=== PATIENT | female | born 1995 | race Caucasian/White ===

== ENCOUNTER → 2022-11-27 09:35 | Outpatient (BNVA) | payer OTHER, SELFPAY | PROVIDERS: PCP Family Medicine; Visit Provider Physician Assistant ==

== ENCOUNTER 2022-12-26 13:04 | Outpatient (REF) | payer OTHER, SELFPAY | END 2022-12-26 13:05 | disposition home or self-care (01) | LOC: HO.LNP 13:04 | PROVIDERS: PCP Family Medicine; Visit Provider Physician Assistant | DX: Z01.818 Encounter for other preprocedural examination (principal); E66.01 Morbid (severe) obesity due to excess calories; Z71.3 Dietary counseling and surveillance | CPT/HCPCS: 83013; 99202; 99211 ==

== ENCOUNTER 2023-01-08 09:42 | Outpatient (REF) | payer OTHER, SELFPAY ==
--- NOTE | ~2023-01-08 | US_ITS ---
EXAMINATION: US COMPLETE ABDOMEN WITH LIVER ELASTOGRAPHY CLINICAL INFORMATION: Morbid obesity. COMPARISON: None available. TECHNIQUE: Real-time imaging of the abdominal viscera. Noninvasive ultrasound liver fibrosis assessment is performed using Ryan ElastPQ point quantification shear wave elastography (2D-SWE) with a C5-2 MHz transducer. Multiple elastography samples are obtained. FINDINGS: PANCREAS: Limited. The visualized pancreatic head and body are normal in appearance. The remainder of the pancreas is obscured from visualization by the overlying bowel gas. ABDOMINAL AORTA: The proximal, middle, and distal aortic segments are normal in caliber. INFERIOR VENA CAVA: Visualized portions are normal. LIVER: The liver demonstrates normal size, contour and generally increased echogenicity, with pericholecystic sparing. No focal lesion or intrahepatic biliary duct dilatation. The right lobe measures 13.5 cm in length. The left lobe measures 12.2 cm in length. Portal flow is towards the liver (hepatopetal). Shear wave liver elastography median stiffness is 1.89 m/s (reference: normal median stiffness is 1.3 m/s or less). IQR/median stiffness to assess sampling precision is 0.17 (reference: good quality data set is IQR/median stiffness of 0.15 or less). GALLBLADDER: Normal. The gallbladder is physiologically distended without evidence of stones, sludge, polyps, wall thickening or pericholecystic fluid. COMMON BILE DUCT: Normal in caliber measuring 0.3 cm in diameter. RIGHT KIDNEY: Normal. No hydronephrosis. No renal calculi or focal parenchymal lesions. The kidney measures 10.1 cm in maximum dimension. LEFT KIDNEY: Normal. No hydronephrosis. No renal calculi or focal parenchymal lesions. The kidney measures 9.8 cm in maximum dimension. SPLEEN: Normal. The spleen measures 11.2 cm in maximum dimension. FREE FLUID: None. US/US abdomen comp w elastography IMPRESSION: 1. There is generalized increase in hepatic echotexture, consistent with fatty infiltration or hepatocellular disease. Characteristic pericholecystic sparing favors fatty infiltration. Please correlate clinically. No focal hepatic mass or intrahepatic biliary dilatation is seen. 2. Liver elastography: Although measurements are suggestive of compensated advanced chronic liver disease, there is statistical variability of the sampling which decreases accuracy. 3. Technically limited ultrasound examination of the pancreatic tail. REFERENCE: Society of Radiologists in Ultrasound Liver Stiffness Thresholds (2020): LIVER STIFFNESS THRESHOLDS: *Liver Stiffness equal or less than 1.3 m/s: High probability of being normal. *Liver Stiffness less than 1.7 m/s: In the absence of other known clinical signs, rules out compensated advanced chronic liver disease. *Liver Stiffness 1.7-2.1 m/s: Suggestive of compensated advanced chronic liver disease but need further test for confirmation. *Liver Stiffness over 2.1 m/s: Rules in compensated advanced chronic liver disease. *Liver Stiffness over 2.4 m/s: Suggestive of clinically significant portal hypertension. QUALITY OF DATA SET: *IQR/Median value equal or less than 0.15 implies a quality data set. *IQR/Median value over 0.15 implies a poor quality data set. SIGNIFICANT CHANGE FROM PRIOR EXAM: Significant change if liver stiffness measurement is 10% or greater from prior exam. OTHER CONSIDERATIONS: The stage of liver fibrosis may be overestimated in the setting of acute hepatitis, liver inflammation, elevated liver function tests, hepatic vascular congestion, obstructive cholestasis, non-fasting state, and infiltrative diseases such as amyloidosis and lymphoma. In some patients with NAFLD, the liver stiffness thresholds for compensated advanced chronic liver disease may be lower. In causes other than viral hepatitis and NAFLD, liver stiffness thresholds are not well established.
--- NOTE | ~2023-01-08 | XR_ITS ---
EXAMINATION: XR CHEST CLINICAL INFORMATION: Morbid (severe) obesity due to excess calories Preop chest x-ray COMPARISON: None available. TECHNIQUE: 2 views of the chest were obtained. FINDINGS: No significant abnormality is noted involving the heart, lungs, mediastinum, bony thorax or soft tissues. XR/XR chest 2V IMPRESSION: No acute cardiopulmonary disease.
--- NOTE | 2023-01-08 10:27 | ECG_ITS ---
Test Reason : e66.01 Blood Pressure : / mmHG Vent. Rate : 062 BPM Atrial Rate : 062 BPM P-R Int : 166 ms QRS Dur : 090 ms QT Int : 408 ms P-R-T Axes : 037 023 024 degrees QTc Int : 414 ms Normal sinus rhythm with sinus arrhythmia Normal ECG No previous ECGs available Referred By: Cherise Garber Electronically Signed By:Bharath Harris
[2023-01-08 11:24] LABS: Estimated Average Glucose 80 mg/dL; Hemoglobin A1c % 4.4 %
[2023-01-08 11:36] LABS: C Reactive Protein 1.98 mg/dL (< or = 0.50)
[2023-01-08 11:54] LABS: Ferritin 58 ng/mL (10-122); Vitamin D 25-OH Total 24.5 ng/mL (>30)
[2023-01-08 12:07] LABS: Folate 10.7 ng/mL (> or = 4.0); Vitamin B12 557 pg/mL (200-900)
[2023-01-11 05:43] LABS: Calcium (PTHI) 9.5 mg/dL (8.6-10.2); PTHI 86 pg/mL (16-77)
[2023-01-13 12:49] LABS: Vitamin B1 9 nmol/L (8-30)
[2023-01-13 16:13] LABS: Zinc 111 mcg/dL (60-130)
[2023-01-15 04:08] LABS: Vitamin A 23 mcg/dL (38-98)
== END 2023-01-08 09:43 | disposition home or self-care (01) ==
LOC: HO.US 09:42
PROVIDERS: PCP Family Medicine; Visit Provider Physician Assistant
DX: Z01.818 Encounter for other preprocedural examination (principal); E66.01 Morbid (severe) obesity due to excess calories
CPT/HCPCS: 36415; 71046; 76705; 76981; 82306; 82607; 82728; 82746; 83036; 83970; 84425; 84590; 84630; 86140; 93005

== ENCOUNTER → 2023-01-08 10:27 | Outpatient (BNV) | payer OTHER, SELFPAY | PROVIDERS: PCP Family Medicine; Visit Provider Internal Medicine Cardiovascular Disease | DX: Z01.818 Encounter for other preprocedural examination (principal); E66.01 Morbid (severe) obesity due to excess calories | CPT/HCPCS: 93010 ==

== ENCOUNTER 2023-01-24 13:33 | Outpatient (AMB) | payer OTHER, SELFPAY ==
--- NOTE | 2023-01-24 13:13 | MHC.OFFVISWM ---
Intake VS Expanded 01/24/23 13:43 Height 5 ft 3 in Weight 273 lb 3.2 oz BMI 48.4 BP 121/65 Blood Pressure Location Rt brachial Blood Pressure Position Sitting Pulse 78 Pulse Source Pulse Oximeter Temp 97.8 F Temperature Source Temporal Artery Scan Pulse Oximetry 96 Oxygen Delivery Method Room Air Body Fat 133.0 Body Fat Percentage 48.7 Free Fat Mass 140.2 Muscle Mass 133.2 Visceral Mass 15.0 Water Mass 100.8 BMR 2,037 Intake Visit Reasons: (OV) F/U SWL Allergies No Known Allergies Allergy (Verified 01/24/23 13:42) HPI HPI Comments History of Present Illness Details This is the patients second appt for SWL. Starting weight was 283.8 lbs. TBWL is 10.6 lbs or 3.7% TBWL. Meal plan: does not like yogurt, only likes Atkins bars with 10 grams 9am - PP shake 3 pm - salad with chicken, turkey or pork tenderloin. has been having wraps Sometimes has another shake. Exercise plan: treadmill - decreased to every 2- 3 days. speed 2.6, incline ?, at least 30 minutes - 300 calories. Pre op work up completed as follows: SWL classes - 09/28 appts -02/03 RD appts -01/28 H pylori - negative Labs - vitamin A and D deficiencies - needs to picker operator from pharmacy CXR and ECG - both NAD ULS -liver steatosis UGI - 02/07 PFSH Surgical History History of removal of cyst Hx of wisdom tooth extraction Family History Mother No problems noted. Father High cholesterol Brother No problems noted. Social History Alcohol intake: never Patient Tobacco Use Status: Never used Tobacco Physical Exam Vital Signs: Last Vital Signs Temp 97.8 F 01/24/23 13:43 Pulse 78 01/24/23 13:43 BP 121/65 01/24/23 13:43 Pulse Ox 96 01/24/23 13:43 Oxygen Delivery Method Room Air 01/24/23 13:43 BMI result Body Mass Index 48.4 Assessment & Plan Assessment & Plan (1) Morbid obesity: Code(s): E66.01 - Morbid (severe) obesity due to excess calories Plan: SWL - good start. We've made some adjustments Treadmill 3d/ week - speed 2.8, incline2 - 7 changing every 3 minutes. 350 bennett 2d/week - TBP Walk - 2 miles in 40 minutes. Meal plan - stop skipping meals 9am - shake 12pm - bar at least 15 grams, if not can add 1 hb egg 3pm -meal 7pm,- shake Next appt 3 weeks. Patient is morbidly obese and is not considered stable at this time. I spent 30 minutes in total with patient reviewing/updating records, examining the patient and counseling the patient on weight management as detailed above. (2) Steatosis, liver: Code(s): K76.0 - Fatty (change of) liver, not elsewhere classified (3) Vitamin D deficiency: Code(s): E55.9 - Vitamin D deficiency, unspecified (4) Vitamin A deficiency: Code(s): E50.9 - Vitamin A deficiency, unspecified Coding Level of Care Code Est Pt Level 4 (25592) Diagnoses Morbid obesity E66.01 Steatosis, liver K76.0 Vitamin D deficiency E55.9 Vitamin A deficiency E50.9
[2023-01-24 13:43] VITALS: BP 121/65; PULSE 78; TEMP 36.6; O2SAT 96; BMI 48.4
== END 2023-01-24 14:20 | disposition home or self-care (01) ==
PROVIDERS: PCP Family Medicine; Visit Provider Physician Assistant
DX: E66.01 Morbid (severe) obesity due to excess calories (principal); Z68.42 Body mass index [BMI] 45.0-49.9, adult; K76.0 Fatty (change of) liver, not elsewhere classified; E55.9 Vitamin D deficiency, unspecified; E50.9 Vitamin A deficiency, unspecified
CPT/HCPCS: 99214

== ENCOUNTER → 2023-01-24 13:33 | Outpatient (BNVA) | payer OTHER, SELFPAY | PROVIDERS: PCP Family Medicine; Visit Provider Physician Assistant | DX: E66.01 Morbid (severe) obesity due to excess calories (principal); E55.9 Vitamin D deficiency, unspecified; E50.9 Vitamin A deficiency, unspecified; K76.0 Fatty (change of) liver, not elsewhere classified; Z68.42 Body mass index [BMI] 45.0-49.9, adult | CPT/HCPCS: 99212 ==

== ENCOUNTER 2023-01-28 09:10 | Outpatient (AMB) | payer OTHER, SELFPAY ==
--- NOTE | 2023-01-28 09:04 | A.OFFVIS_ITS ---
Intake Intake Visit Reasons: VIDEO Initial Nutrition SWL Allergies No Known Allergies Allergy (Verified 01/24/23 13:42) HPI Nutrition Presentation Reason for consult elevated BMI Diet Assmnt Details Pt feels that she has been doing very well with her nutrition plan. Met with Toya last week and received recipe book. She went grocery shopping yesterday to try some new recipes. She feels that this will be very helpful. Has been learning to eat more vegetables Using Pure protein powder unsweetened almond milk or fairlife milk or premade ; Atkins but only likes the PB one - 10g protein Exercise: walking outside . She discussed in exercise routine with toya at last appointment but has yet to implement anything yet SWL online classes: completed, Preop class not added to virtual curriculum yet Dietary counseling reduction Diagnosis Nutrition problem #1 overweight/obesity As related to (etiology) #1 excess energy intake and physical inactivity As evidenced by (sign/symptom) #1 high BMI Monitoring/Goals Nutrition problem monitoring total energy intake, level of knowledge/skill, total PRO intake, total CHO intake and weight Outcome progress progressing Learning/Education Readiness to learn good Stages of change action Educational materials provided Yes (all SWL material, recipe book) Most Recent Diabetes Results: No Data to Display [facility] Surgical History History of removal of cyst Hx of wisdom tooth extraction Family History Mother No problems noted. Father High cholesterol Brother No problems noted. Social History Alcohol intake: never Patient Tobacco Use Status: Never used Tobacco Assessment & Plan Assessment & Plan (1) Morbid obesity: Code(s): E66.01 - Morbid (severe) obesity due to excess calories Patient Instructions: Patient is off to a great start. She will continue her nutrition plan, encouraged beginning a consistent exercise routine today. She will follow-up 02/28 at 09:30 vid. Will need to review preop class Telehealth Telehealth Location of provider rendering services: practice address Location of patient: address on file Patient Identification confirmed using: Name, : Yes Telehealth method: video Patient verbally consented to treatment: Yes Patient verbally consented to billing insurance company: Yes Patient informed of any privacy concerns related to visit: Yes Minutes spent on Phone/Video with Pt.: 25 Coding Level of Care Code Nutr Indiv Intake (00482) Diagnoses Morbid obesity E66.01 Time Spent (min) 25
== END 2023-01-28 09:24 | disposition home or self-care (01) ==
LOC: HO.HBS 09:10
PROVIDERS: PCP Family Medicine; Visit Provider Dietitian, Registered
DX: E66.01 Morbid (severe) obesity due to excess calories (principal)

== ENCOUNTER → 2023-01-28 09:10 | Outpatient (BNVA) | payer OTHER, SELFPAY | PROVIDERS: PCP Family Medicine; Visit Provider Dietitian, Registered | DX: E66.01 Morbid (severe) obesity due to excess calories (principal); Z71.3 Dietary counseling and surveillance | CPT/HCPCS: 97802 ==

== ENCOUNTER 2023-02-03 10:40 | Outpatient (AMB) | payer OTHER, SELFPAY ==
--- NOTE | 2023-02-03 10:27 | MHC.WMTHER ---
Intake Intake Visit Reasons: VIDEO Intake Allergies No Known Allergies Allergy (Verified 01/24/23 13:42) [facility] Surgical History History of removal of cyst Hx of wisdom tooth extraction Family History Mother No problems noted. Father High cholesterol Brother No problems noted. Social History Alcohol intake: never Patient Tobacco Use Status: Never used Tobacco Behavioral Health Assessment Weight Management Therapy Therapy Notes Details Pt is looking to have weight loss surgery to help improve her health and quality of life. She denied any mental health history or treatment and no problems with drugs or alcohol. Pt did report some depression due to her weight however has never been in therapy. Presenting Concerns Referral Source provider Reason for referral weight loss surgery evaluation Precipitating Event obesity Living Situation Current Living Situation Relative's/Guardian's Arminda At risk of losing current housing? No Satisfied with current living situation? Yes Comments Patient lives with her parents and is single. Food/Weight/Diet Expectations of change weight loss and maintenance History/Relationship with food Pt stated that she would snack often late at night, when she was young she would eat cheese late at night and hide the wrappers under her bed. Chips, cookies, leftover cake, crackers were usually her snack choices. For her meals she would eat rice, meatball sandwhiches, pasta, chicken tenders, [place] fries, mashed potatoes, soda rarely, mostly water, also larger portion sizes. Daniela stated that often would eat out fast food, pizzerias, [employer], [employer] about 3x's a week Friday through Friday. History/Relationship with weight Pt stated that she has been overweight since she was a child. `She stated that in Jul she was at her heaviest and started to eat less and lost 10lbs. Patient reported being bullied due to her weight growing up. History/Relationship with dieting She denied a history various diets or dieting often. Binge Eating Do you frequently eat large amounts of food in short periods of time, not feeling physically hungry? No Do you feel out of control when you eat a large amount of food in a short period of time? No Night Eating Do you wake up at least once during the night to eat? Yes If you wake up in the night, do you find that it is necessary to eat something in order to fall back asleep? Yes Do you have little or no appetite in the morning and feel very hungry in the evening, often overeating between dinner and when you go to bed? No Social History Family history and relationship Pt was born and raised in [place] [place] by her biological parents and older brother. She is single with no children. Pt denied a history of any trauma or abuse. Parental/Familial breaker layer obligations none Developmental history and status no issues reported Social support mom, grandmother Community support family's restorationism occasionally Buddhist/Spirituality Druze Cultural/Ethnic information Legal Involvement and History Current or historical involvement with the legal system? none Education Highest grade completed [employer] Preferred learning style Auditory, Verbal, Written, Learn by doing and Visual Currently enrolled in educational program? No Interested in further educational program? No Employment Employment Status Engineer Intern Wants help to find employment? 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 None Service Service? No Mental Health and Addiction Treatment Current/Past substance abuse? No Current/Past addictive behavior concerns? No Medical and Physical Health Summary Physical exam in the last year? Yes Pain Screening Current pain? No Pain in the last few months? No Medications Is the patient compliant with medications? Yes Does the patient have Strickland Guardian in place? Not applicable Trauma/Abuse History History of trauma? No Questionnaires PHQ-9 Over the last 2 weeks, how often have you been bothered by any of the following problems? 1. Little interest or pleasure in doing things: more than half the days 2. Feeling down, depressed, or hopeless: several days 3. Trouble falling or staying asleep, or sleeping too much: nearly every day 4. Feeling tired or having little energy: several days 5. Poor appetite or overeating: several days 6. Feeling bad about yourself - or that you are a failure or have let yourself or your family down: nearly every day 7. Trouble concentrating on things, such as reading the newspaper or watching television: several days 8. Moving or speaking so slowly that other people could have noticed. Or the opposite - being so fidgety or restless that you have been moving around a lot more than usual: several days 9. Thoughts that you would be better off or of hurting yourself in some way: not at all Total score: 13 Depression Screening Interpretation: Positive Source: Developed by Drs. Wm Franks, Lindsey Santana, Liang De Luna and colleagues, with an educational avila from [employer]. Binge Eating Scale Group 1 A. I don't feel self-conscious about my wt. or body size when I'm with others. B. I feel concerned about how I look to others, but it normally does not make me fell disappointed with myself C. I do get self-conscious about my appearance and wt. which makes me feel disappointed in myself. D. I feel very self-conscious about my wt. and frequently I feel intense shame and disgust for myself. I try to avoid social contacts because of my self-consciousness. Response Group 1: D Group 2 A. I don't have any difficulty eating slowly in the proper manner. B. Although I seem to gobble down foods, I don't end up feeling stuffed because of eating to much. C. At times, I tend to eat quickly and then, I feel uncomfortably full afterwards. D. I have the habit of bolting down my food, without really chewing it. When this happens I usually feel uncomfortably stuffed because I've eaten to much. Response Group 2: A Group 3 A. I feel capable to control my eating urges when I want to. B. I feel like I have failed to control my eating more than the average person. C. I feel utterly helpless when it comes to feeling in control of my eating urges. D. Because I feel so helpless about controlling my eating I have become very desperate about trying to get control. Response Group 3: A Group 4 A. I don't have the habit of eating when I'm bored. B. I sometimes eat when I'm bored, but often I'm able to get busy and get my mind off food. C. I have a regular habit of eating when I'm bored, but occasionally, I can use some other activity to get my mind off eating. D. I have a strong habit of eating when I'm bored. Nothing seems to help me breath the habit. Response Group 4: C Group 5 A. I'm usually physically hungry when I eat something. B. Occasionally, I eat something on impulse even though I really am not hungry. C. I have the regular habit of eating foods, that I might not really enjoy, to satisfy a hungry feeling even though physically, I don't need the food. D. Although I'm not physically hungry, I get a hungry feeling in my mouth that only seems to be satisfied when I eat a food, like sandwich, that fills my mouth. Sometimes, when I eat the food to satisfy my mouth hunger, I then spit the food out so I won't gain weight. Response Group 5: A Group 6 A. I don't feel any guilt or self-hate after I overeat. B. After I overeat, occasionally I feel guilt or self-hate. C. Almost all the time I experience strong guilt or self-hate after I overeat. Response Group 6: C Group 7 A. I don't lose total control of my eating when dieting even after periods when I overeat. B. Sometimes when I eat a forbidden food on a diet, I feel like I blew it and eat even more. C. Frequently, I have the habit of saying to myself, I've blown it now, why not go all the way, when I overeat on a diet. When that happens I eat more. D. I have a regular habit of starting a strict diets for myself but I break the diets by going on an eating binge. My life seems to be either a feast or famine. Response Group 7: A Group 8 A. I rarely eat so much food that I feel uncomfortably stuffed afterwards. B. Usually about once a month, I each such a quantity of food, I end up feeling very stuffed. C. I have regular periods during the month when I eat large amounts of food, either at mealtime or at snacks. D. I eat so much food that I regularly feel quite uncomfortable after eating and sometimes a bit nauseous. Response Group 8: A Group 9 A. My level of calorie intake does not go up very high or go down very low on a regular basis. B. Sometimes after I overeat, I will try to reduce my caloric intake to almost nothing to compensate for the excess calories I've eaten. C. I have a regular habit of overeating during the night. It seems that my routine is not to be hungry in the morning but overeat in the evening. D. In my adult years, I have had week-long periods where I practically starve myself. This follows periods when I overeat. It seems I live a life of either feast or famine. Response Group 9: A Group 10 A. I usually am able to stop eating when I want to. I know when enough is enough. B. Every so often, I experience a compulsion to eat which I can't seem to control. C. Frequently, I experience strong urges to eat which I seem unable to control, but at other times I can control my eating urges. D. I feel incapable of controlling urges to eat. I have a fear of not being able to stop eating voluntarily. Response Group 10: A Group 11 A. I don't have any problem stopping eating when I feel full. B. I usually can stop eating when I feel full but occasionally overeat leaving me feeling uncomfortably stuffed. C. I have a problem stopping eating once I start and usually I feel uncomfortably stuffed after I eat a meal. D. Because I have a problem not being able to stop eating when I want, I sometimes have to induce vomiting to relieve my stuffed feeling. Response Group 11: A Group 12 A. I seem to eat just as much when I'm with others, Family social gatherings as when I'm by myself. B. Sometimes, when I'm with other persons, I don't eat as much as I want to eat because I'm self-conscious about my eating. C. Frequently, I eat only a small amount of food when others are present, because I'm very embarrassed about my eating. D. I feel so ashamed about overeating that I pick times to overeat when I know no one will see me. I feel like a closet eater. Response Group 12: B Group 13 A. I eat three meals a day with only an occasional between meal snack. B. I eat 3 meals a day, but I also normally snack between meals. C. When I am snacking heavily, I get in the habit of skipping regular meals. D. There are regular periods when I seem to be continually eating, with no planned meals. Response Group 13: A Group 14 A. I don't think much about trying to control unwanted eating urges. B. At least some of the time, I feel my thoughts are pre-occupied with trying to control my eating urges. C. I feel that frequently I spend much time thinking about how much I ate or about trying not to eat anymore. D. It seems to me that most of my waking hours are pre-occupied by thoughts about eating or not eating. I feel like I'm constantly struggling not to eat. Response Group 14: A Group 15 A. I don't think about food a great deal. B. I have strong craving for food but they last only for brief periods of time. C. I have days when I can't seem to think about anything else but food. D. Most of my days seem to be pre-occupied with thoughts about food. I feel like I live to eat. Response Group 15: A Group 16 A. I usually know whether or not I'm physically hungry. I take the right portion of food to satisfy me. B. Occasionally, I feel uncertain about knowing whether or not I'm physically hungry. A these times it's hard to know how much food I should take to satisfy me. C. Even though I might know how many calories I should eat, I don't have any idea what is a normal amount of food for me. Response Group 16: A Binge Eating Score: 8 Score less than 17 Minimal Risk Score between 18-26 Moderate Risk Score between 27-46 High Risk Assessment & Plan Assessment & Plan (1) Major depressive disorder, recurrent, mild: Code(s): F33.0 - Major depressive disorder, recurrent, mild (2) Morbid obesity: Code(s): E66.01 - Morbid (severe) obesity due to excess calories Plan Patient has no serious mental health concerns and is doing well in the program. She will be seen again for support . Pt is cleared for surgery when ready. Telehealth Telehealth Location of provider rendering services: practice address Patient Identification confirmed using: Name, : Yes Telehealth method: video Patient verbally consented to treatment: Yes Patient verbally consented to billing insurance company: Yes Patient informed of any privacy concerns related to visit: Yes Minutes spent on Phone/Video with Pt.: 45 Coding Level of Care Code Tele Psy Diag Eval (41763) Diagnoses Major depressive disorder, recurrent, mild F33.0 Morbid obesity E66.01 Time Spent (min) 45
== END 2023-02-03 10:49 | disposition home or self-care (01) ==
PROVIDERS: PCP Family Medicine; Visit Provider Counselor Mental Health
DX: F33.0 Major depressive disorder, recurrent, mild (principal); E66.01 Morbid (severe) obesity due to excess calories; Z68.42 Body mass index [BMI] 45.0-49.9, adult
CPT/HCPCS: 90791

== ENCOUNTER → 2023-02-03 10:40 | Outpatient (BNVA) | payer OTHER, SELFPAY | PROVIDERS: PCP Family Medicine; Visit Provider Counselor Mental Health ==

== ENCOUNTER 2023-02-07 07:49 | Outpatient (REF) | payer OTHER, SELFPAY ==
--- NOTE | ~2023-02-07 | FL_ITS ---
PROCEDURE: XR FLUOROSCOPY UPPER GI WITH AIR CLINICAL INFORMATION: Morbid/severe obesity due to excess calories. COMPARISON: None available. TECHNIQUE: Routine upper GI air-contrast study was performed in upright and lying position. FINDINGS: Following oral administration of thick barium and effervescent granules there is normal propagation of bolus from the oral cavity through the pharynx, esophagus into stomach without any evidence of obstruction, narrowing or stricture. On placing patient supine and prone lying the course, caliber and the peristalsis of the stomach, duodenal bulb and sweep is normal. The mucosal pattern of the stomach, duodenal bulb and the sweep is normal. FLUOROSCOPY TIME: 1.3 minutes DOSE AREA PRODUCT: 27.357 uGy-m2 (microgray-meter squared) FL/FL upper GI w air IMPRESSION: Unremarkable upper GI exam.
== END 2023-02-07 07:50 | disposition home or self-care (01) ==
LOC: HO.XRAY 07:49
PROVIDERS: PCP Family Medicine; Visit Provider Physician Assistant
DX: Z01.818 Encounter for other preprocedural examination (principal); E66.01 Morbid (severe) obesity due to excess calories
CPT/HCPCS: 74246

== ENCOUNTER → 2023-02-07 07:51 | Outpatient (BNV) | payer OTHER, SELFPAY | PROVIDERS: PCP Family Medicine; Visit Provider Radiology Diagnostic Radiology | DX: E66.01 Morbid (severe) obesity due to excess calories (principal) | CPT/HCPCS: 74246 ==

== ENCOUNTER 2023-02-17 08:23 | Outpatient (AMB) | payer OTHER, SELFPAY ==
--- NOTE | 2023-02-17 08:26 | A.OFFVIS_ITS ---
Intake VS Expanded 02/17/23 08:40 Height 5 ft 3 in Weight 268 lb 9.6 oz BMI 47.6 BP 125/64 Blood Pressure Location Lt brachial Blood Pressure Position Sitting Pulse 62 Pulse Source Pulse Oximeter Temp 97.8 F Temperature Source Tympanic Pulse Oximetry 98 Oxygen Delivery Method Room Air Body Fat 126.6 Body Fat Percentage 47.1 Free Fat Mass 142.0 Muscle Mass 135.0 Visceral Mass 14.0 Water Mass 53.4 BMR 2,049 Intake Visit Reasons: (OV) F/U SWL Allergies No Known Allergies Allergy (Verified 02/17/23 08:31) HPI HPI Comments History of Present Illness Details Starting weight was 283.8 lbs. TBWL is 15.2 lbs or? 5.4% TBWL. Meal plan: 2 shakes per day, 1 bar and one meal - lean protein- still learning how to eata nd cook vegetables Exercise plan: nothing regular yet. Pre op work up completed as follows: SWL classes -? 09/28 BH appts? -02/03?, cleared? RD appts? -01/28, follow up on 02/28 H pylori - negative Labs - vitamin A and D deficiencies - needs to pick up operator from pharmacy CXR and ECG - both NAD ULS -liver steatosis UGI - normal [facility] Surgical History History of removal of cyst Hx of wisdom tooth extraction Family History Mother No problems noted. Father High cholesterol Brother No problems noted. Social History Alcohol intake: never Patient Tobacco Use Status: Never used Tobacco Assessment & Plan Assessment & Plan (1) Morbid obesity: Code(s): E66.01 - Morbid (severe) obesity due to excess calories Plan: Patient seen again with her mother. TBWL is 15.2 or 5.4%. She has a good meal plan and is willing to wrok on learning how to cook adn eat vegetabls. I referred her to Michelle for cookbook and recipe ideas. Exercise - We spent a long time discussing why exercise is a necessary component of healthy lifestlyle. Goal is 350 calories 4d/ week., W, and Friday - at 6pm. Alternating Treadmill (speed 3.0, incline 2-7 - for 350 calories) and TBP or [employer] 30 minute videos. Next appt with me in 3 weeks. Patient is morbidly obese and is not considered stable at this time. I spent 30 minutes in total with patient reviewing/updating records, examining the patient and counseling the patient on weight management as detailed above. (2) Steatosis, liver: Code(s): K76.0 - Fatty (change of) liver, not elsewhere classified Coding Level of Care Code Est Pt Level 4 (55053) Diagnoses Morbid obesity E66.01 Steatosis, liver K76.0
[2023-02-17 08:40] VITALS: BP 125/64; PULSE 62; TEMP 36.6; O2SAT 98; BMI 47.6
== END 2023-02-17 09:07 | disposition home or self-care (01) ==
PROVIDERS: PCP Family Medicine; Visit Provider Physician Assistant
DX: E66.01 Morbid (severe) obesity due to excess calories (principal); Z68.42 Body mass index [BMI] 45.0-49.9, adult; K76.0 Fatty (change of) liver, not elsewhere classified
CPT/HCPCS: 99214

== ENCOUNTER → 2023-02-17 08:23 | Outpatient (BNVA) | payer OTHER, SELFPAY | PROVIDERS: PCP Family Medicine; Visit Provider Physician Assistant | DX: E66.01 Morbid (severe) obesity due to excess calories (principal); K76.0 Fatty (change of) liver, not elsewhere classified; E50.9 Vitamin A deficiency, unspecified; E55.9 Vitamin D deficiency, unspecified; Z68.42 Body mass index [BMI] 45.0-49.9, adult | CPT/HCPCS: 99212 ==

== ENCOUNTER 2023-02-28 10:53 | Outpatient (AMB) | payer OTHER, SELFPAY ==
--- NOTE | 2023-02-28 10:50 | A.OFFVIS_ITS ---
Intake VS Expanded 02/28/23 10:59 Height 5 ft 3 in Weight 266 lb BMI 47.1 Intake Visit Reasons: VIDEO F/U SWL Sill Worker Required: No Allergies No Known Allergies Allergy (Verified 02/17/23 08:31) HPI Nutrition Presentation Reason for consult elevated BMI Diet Assmnt Details Pt has been trying new recipes from our recipe books, but is also seeking more resources today. Has been learning to eat more vegetables Using Pure protein or premier powder unsweetened almond milk Atkins but only likes the PB one - 10g protein ; also using one with only 6g protein. Educated pt to also look at calories, and carbs to understand the quality of the product. Puts peanut butter in her shakes, didn't realize how many calories this was contributing. Rec PB2 instead but read portion size [place] to [place] and plans to bring her shakes and bars but is also seeking guidance on how to make healthy food choices. Exercise: walking outside . She discussed in exercise routine with toya at last appointment but has yet to implement anything yet [facility] online classes: completed, Preop class not added to virtual curriculum yet Dietary counseling reduction Diagnosis Nutrition problem #1 overweight/obesity As related to (etiology) #1 excess energy intake and physical inactivity As evidenced by (sign/symptom) #1 high BMI Monitoring/Goals Nutrition problem monitoring total energy intake, level of knowledge/skill, total PRO intake, total CHO intake and weight Outcome progress progressing Learning/Education Readiness to learn good Stages of change action Educational materials provided Yes (all [facility] material, recipe book) Most Recent Diabetes Results: No Data to Display [facility] Surgical History History of removal of cyst Hx of wisdom tooth extraction Family History Mother No problems noted. Father High cholesterol Brother No problems noted. Social History Alcohol intake: never Patient Tobacco Use Status: Never used Tobacco Assessment & Plan Assessment & Plan (1) Morbid obesity: Code(s): E66.01 - Morbid (severe) obesity due to excess calories Patient Instructions: Educated patient on reading nutrition labels and general nutrition information today. talked about how to make good food choices while traveling. Will require more nutrition education. May follow up with me as needed. She is cleared from a nutrition standpoint for bariatric surgery. Telehealth Telehealth Location of provider rendering services: practice address Location of patient: address on file Patient Identification confirmed using: Name, : Yes Telehealth method: video Patient verbally consented to treatment: Yes Patient verbally consented to billing insurance company: Yes Patient informed of any privacy concerns related to visit: Yes Minutes spent on Phone/Video with Pt.: 30 Coding Level of Care Code Nutr Indiv Subseq (17598) Diagnoses Morbid obesity E66.01 Time Spent (min) 30
[2023-02-28 10:59] VITALS: BMI 47.1
== END 2023-02-28 11:15 | disposition home or self-care (01) ==
LOC: HO.HBS 10:53
PROVIDERS: PCP Family Medicine; Visit Provider Dietitian, Registered
DX: E66.01 Morbid (severe) obesity due to excess calories (principal)

== ENCOUNTER → 2023-02-28 10:53 | Outpatient (BNVA) | payer OTHER, SELFPAY | PROVIDERS: PCP Family Medicine; Visit Provider Dietitian, Registered | DX: E66.01 Morbid (severe) obesity due to excess calories (principal); Z68.42 Body mass index [BMI] 45.0-49.9, adult; Z71.3 Dietary counseling and surveillance | CPT/HCPCS: 97803 ==

== ENCOUNTER 2023-03-03 12:04 | Outpatient (AMB) | payer OTHER, SELFPAY ==
--- NOTE | 2023-03-04 12:48 | MHC.WMTHER ---
Intake Intake Visit Reasons: VIDEO F/U SWL Allergies No Known Allergies Allergy (Verified 02/17/23 08:31) [facility] Surgical History History of removal of cyst Hx of wisdom tooth extraction Family History Mother No problems noted. Father High cholesterol Brother No problems noted. Social History Alcohol intake: never Patient Tobacco Use Status: Never used Tobacco Behavioral Health Assessment Weight Management Therapy Therapy Notes Details Daniela reported improvement in symptoms and doing well. She has been able to stick to the meal plan even while her family orders out food who she lives with. She continues to work on her career and business goals as well. Pt is looking to have weight loss surgery to help improve her health and quality of life. She denied any mental health history or treatment and no problems with drugs or alcohol. Pt did report some depression due to her weight however has never been in therapy. Presenting Concerns Referral Source provider Reason for referral weight loss surgery evaluation Precipitating Event obesity Living Situation Current Living Situation Relative's/Guardian's Arminda At risk of losing current housing? No Satisfied with current living situation? Yes Comments Patient lives with her parents and is single. Food/Weight/Diet Expectations of change weight loss and maintenance History/Relationship with food Pt stated that she would snack often late at night, when she was young she would eat cheese late at night and hide the wrappers under her bed. Chips, cookies, leftover cake, crackers were usually her snack choices. For her meals she would eat rice, meatball sandwhiches, pasta, chicken tenders, swiss fries, mashed potatoes, soda rarely, mostly water, also larger portion sizes. Daniela stated that often would eat out fast food, pizzerias, [employer], [employer] about 3x's a week Friday through Friday. History/Relationship with weight Pt stated that she has been overweight since she was a child. `She stated that in Jul she was at her heaviest and started to eat less and lost 10lbs. Patient reported being bullied due to her weight growing up. History/Relationship with dieting She denied a history various diets or dieting often. Binge Eating Do you frequently eat large amounts of food in short periods of time, not feeling physically hungry? No Do you feel out of control when you eat a large amount of food in a short period of time? No Night Eating Do you wake up at least once during the night to eat? Yes If you wake up in the night, do you find that it is necessary to eat something in order to fall back asleep? Yes Do you have little or no appetite in the morning and feel very hungry in the evening, often overeating between dinner and when you go to bed? No Social History Family history and relationship Pt was born and raised in [facility] by her biological parents and older brother. She is single with no children. Pt denied a history of any trauma or abuse. Parental/Familial upper stitcher obligations none Developmental history and status no issues reported Social support mom, grandmother Community support family's alevism occasionally Methodist/Spirituality Muslim Cultural/Ethnic information Legal Involvement and History Current or historical involvement with the legal system? none Education Highest grade completed [employer] Preferred learning style Auditory, Verbal, Written, Learn by doing and Visual Currently enrolled in educational program? No Interested in further educational program? No Employment Employment Status Engineering Professor Wants help to find employment? 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 None Service Service? No Mental Health and Addiction Treatment Current/Past substance abuse? No Current/Past addictive behavior concerns? No Medical and Physical Health Summary Physical exam in the last year? Yes Pain Screening Current pain? No Pain in the last few months? No Medications Is the patient compliant with medications? Yes Does the patient have Strickland Guardian in place? Not applicable Trauma/Abuse History History of trauma? No Assessment & Plan Assessment & Plan (1) Major depressive disorder, recurrent, mild: Code(s): F33.0 - Major depressive disorder, recurrent, mild (2) Morbid obesity: Code(s): E66.01 - Morbid (severe) obesity due to excess calories Plan Patient has no serious mental health concerns and is doing well in the program. She will be seen again for support . Pt is cleared for surgery when ready. Telehealth Telehealth Location of provider rendering services: practice address Location of patient: address on file Patient Identification confirmed using: Name, : Yes Telehealth method: video Patient verbally consented to treatment: Yes Patient verbally consented to billing insurance company: Yes Patient informed of any privacy concerns related to visit: Yes Minutes spent on Phone/Video with Pt.: 30 Coding Level of Care Code Tele Psytx 30 mins (59721) Diagnoses Major depressive disorder, recurrent, mild F33.0 Morbid obesity E66.01 Time Spent (min) 30
== END 2023-03-04 12:48 | disposition home or self-care (01) ==
PROVIDERS: PCP Family Medicine; Visit Provider Counselor Mental Health
DX: F33.0 Major depressive disorder, recurrent, mild (principal); E66.01 Morbid (severe) obesity due to excess calories
CPT/HCPCS: 90832

== ENCOUNTER → 2023-03-03 12:04 | Outpatient (BNVA) | payer OTHER, SELFPAY | PROVIDERS: PCP Family Medicine; Visit Provider Counselor Mental Health ==

== ENCOUNTER 2023-03-28 08:30 | Outpatient (AMB) | payer OTHER, SELFPAY ==
--- NOTE | 2023-03-28 08:34 | MHC.OFFVISWM ---
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 Does Yoga sometimes, alternates between TBP videos and treadmill for >300 calories. speed 3.0, incline - doesn't know how to read the incline but she changes it up and down. Pre op work up completed as follows: SWL classes -? 01/28 BH appts? -02/03?, cleared? RD appts? -01/28, follow up on 02/28, cleared H pylori - negative Labs - vitamin A and D deficiencies CXR and ECG - both NAD ULS -liver steatosis UGI - normal PFSH Surgical History History of removal of cyst Hx of wisdom tooth extraction Family History Mother No problems noted. Father High cholesterol Brother No problems noted. Social History Alcohol intake: never Patient Tobacco Use Status: Never used Tobacco Assessment & Plan Assessment & Plan (1) Morbid obesity: Code(s): E66.01 - Morbid (severe) obesity due to excess calories Plan: Great progress with 22.4 lbs lost or 7.9% TBWL. Pre op work up is completed. We had a adiscussion about fci weight maintenance today. Meal plan - 10 forks each of protein and vegetable - no other changes Exercise - now increase to 350 calories burned and continue to alternate with TBP, Yoga prn Continue to send me weights weekly, next aptp withme and then with surgeon. Patient is still morbidly obese and is not considered stable at this time. I spent 30 minutes in total speaking with the patient via video conference counseling , reviewing records and charting in patients chart. . (2) Steatosis, liver: Code(s): K76.0 - Fatty (change of) liver, not elsewhere classified Telehealth Telehealth Location of provider rendering services: practice address Location of patient: address on file Patient Identification confirmed using: Name, : Yes Telehealth method: video Patient verbally consented to treatment: Yes Patient verbally consented to billing insurance company: Yes Patient informed of any privacy concerns related to visit: Yes Coding Level of Care Code Tele Est Pt Level 4 (97276) Diagnoses Morbid obesity E66.01 Steatosis, liver K76.0
[2023-03-28 08:46] VITALS: BMI 46.3
== END 2023-03-28 09:18 | disposition home or self-care (01) ==
LOC: HO.HBS 09:14
PROVIDERS: PCP Family Medicine; Visit Provider Physician Assistant
DX: E66.01 Morbid (severe) obesity due to excess calories (principal); Z68.42 Body mass index [BMI] 45.0-49.9, adult; K76.0 Fatty (change of) liver, not elsewhere classified
CPT/HCPCS: 99214

== ENCOUNTER → 2023-03-28 08:30 | Outpatient (BNVA) | payer OTHER, SELFPAY | PROVIDERS: PCP Family Medicine; Visit Provider Physician Assistant | DX: E66.01 Morbid (severe) obesity due to excess calories (principal); K76.0 Fatty (change of) liver, not elsewhere classified; E55.9 Vitamin D deficiency, unspecified; E50.9 Vitamin A deficiency, unspecified ==

== ENCOUNTER 2023-04-25 09:30 | Outpatient (AMB) | payer OTHER, SELFPAY ==
--- NOTE | 2023-04-25 09:12 | MHC.OFFVISWM ---
Intake VS Expanded 04/25/23 09:29 Height 5 ft 3 in Weight 257 lb 8 oz BMI 45.6 Intake Visit Reasons: VIDEO F/U SWL Allergies No Known Allergies Allergy (Verified 02/17/23 08:31) HPI HPI Comments History of Present Illness Details SWL follow up, EDITING INTERN weight of 283.4 lb s, TBWL is 25.6 lb s or 9%. Meal pl an - 9am Pure pro tein RTD shake 12p m - bar 3pm - meal - cauliflower and protein - 12 fork s n mostly 7pm - a nother shake - dequan etimes uses protie n powder and Fairl jason milk Exercise - hiking. doesn't like to use her t readmill, no where to put it in her home. Pre op wor k up completed as follows: SWL class es -? 01/28 BH appts ? -02/03?, cleared? RD appts? -01/28, f ollow up on 02/28, c leared H pylori - negative Labs - vi tamin A and D defi ciencies CXR and ECG - both NAD ULS -liver steatosis UGI - normal [facility] Surgical History History of removal of cyst Hx of wisdom tooth extraction Family History Mother No problems noted. Father High cholesterol Brother No problems noted. Social History Alcohol intake: never Patient Tobacco Use Status: Never used Tobacco Assessment & Plan Assessment & Plan (1) Morbid obesity: Code(s): E66.01 - Morbid (severe) obesity due to excess calories Plan: Pt has had excellent weight loss of 9% and has an adequate meal plan. She will now switch ot UAM or water with her shakes and contineu to measure itn forkfuls per Dr Desai Exercise - still needs to develop regular routine. Must start TBP 30 videos >4 d/week. We discussed how she will need to use her treadmill exclusively for firt 4-6 weeks after surgery and needs to find a way to make it comfortable for her to use. Next appt with me in 3 wks, will text me weight weekly and if reach 10% will change appt to Dr Ramirez for surgical consult. Patient is morbidly obese and is not considered stable at this time. I spent 30 minutes in total with patient reviewing/updating records, examining the patient and counseling the patient on weight management as detailed above. (2) Steatosis, liver: Code(s): K76.0 - Fatty (change of) liver, not elsewhere classified Telehealth Telehealth Location of provider rendering services: practice address Location of patient: address on file Patient Identification confirmed using: Name, : Yes Telehealth method: video Patient verbally consented to treatment: Yes Patient verbally consented to billing insurance company: Yes Patient informed of any privacy concerns related to visit: Yes Coding Level of Care Code Est Pt Level 4 (52433) Diagnoses Morbid obesity E66.01 Steatosis, liver K76.0
[2023-04-25 09:29] VITALS: BMI 45.6
== END 2023-04-25 09:51 | disposition home or self-care (01) ==
LOC: HO.HBS 09:48
PROVIDERS: PCP Family Medicine; Visit Provider Physician Assistant
DX: E66.01 Morbid (severe) obesity due to excess calories (principal); Z68.42 Body mass index [BMI] 45.0-49.9, adult; K76.0 Fatty (change of) liver, not elsewhere classified
CPT/HCPCS: 99214

== ENCOUNTER → 2023-04-25 09:30 | Outpatient (BNVA) | payer OTHER, SELFPAY | PROVIDERS: PCP Family Medicine; Visit Provider Physician Assistant | DX: E66.01 Morbid (severe) obesity due to excess calories (principal); K76.0 Fatty (change of) liver, not elsewhere classified; Z68.42 Body mass index [BMI] 45.0-49.9, adult | CPT/HCPCS: 99212 ==